=== PATIENT | female | born 2000 | race Caucasian/White ===

== ENCOUNTER 2021-03-09 15:06 | Emergency (ER) | payer SELFPAY ==
[~2021-03-09] VITALS: Ht 162.6 cm; Wt 60.3 kg
--- NOTE | 2021-03-09 15:41 | NUR ---
REFERRAL AND INFORMATION AIDE: PT TO ROOM FROM [facility]. PT TO BR TO ATTEMPT TO PROVIDE URINE SPECIMAN.
[2021-03-09 16:14] VITALS: BP 95/60
[2021-03-09 16:16] LABS: BASOPHILS % (AUTO) 0 % (0-1); EOSINOPHILS % (AUTO) 1 % (1-7); LYMPHOCYTES % (AUTO) 16 % (22-44); MEAN CORPUSCULAR HEMOGLOBIN 29.3 pg (27.0-34.8); MEAN PLATELET VOLUME 7.5 fL (7.4-10.4); MONOCYTES % (AUTO) 5 % (2-9); NEUTROPHILS % (AUTO) 79 % (42-75); PLATELET COUNT 286 x10^3/uL (130-400); RED CELL DISTRIBUTION WIDTH 14.1 % (9.6-15.2)
--- NOTE | 2021-03-09 16:17 | NUR ---
PT AMBULATORY TO ROOM 23 W/ C/O L FLANK PAIN PT STATES SHE BELIEVES SHE HAS A KINDEY INFECTION. PT STATES HX KIDNEY INFECTION W/ SEPSIS AND WAS TOLD BY HER PCP TO COME TO ED TO R/O SEPSIS. PT DENIES ANY INCREASED FREQUENCY/BURNING/ HEMATURIA. PT RESTING ON GURNEY. NADN. MONITORS APPLIED. VSS. WARM BLANKET PROVIDED. CALL LIGHT IN REACH.
[2021-03-09 16:25] LABS: MICROSCOPIC AUTO
[2021-03-09 16:26] LABS: ALBUMIN 3.9 g/dL (3.4-5.0); ANION GAP 4 mmol/L (5-15); CHLORIDE 108 mmol/L (98-107)
[2021-03-09 16:32] LABS: ALANINE AMINOTRANSFERASE 20 U/L (12-78); ALKALINE PHOSPHATASE 65 U/L (45-117); CREATININE 0.79 mg/dL (0.55-1.02); TOTAL PROTEIN 7.8 g/dL (6.4-8.2)
[2021-03-09 16:44] LABS: BILIRUBIN,TOTAL 0.6 mg/dL (0.2-1.0)
--- NOTE | 2021-03-09 16:48 | NUR ---
PT CHART REVIEWED AND PLACED FOR RECHECK
== END 2021-03-09 17:43 | disposition home or self-care (01) ==
LOC: ED 17:30
DX: N30.00 Acute cystitis without hematuria (principal)
CPT/HCPCS: 36415; 80053; 81001; 84703; 85025; 87086; 99283